=== PATIENT | female | born 1965 | race Caucasian/White ===

== ENCOUNTER 2018-07-13 13:40 | Observation (INO) | payer OTHER ==
[2018-07-13] MEDS ORDERED: SODIUM CHLORIDE 0.9% 1,000 ML IV STA (14:53)
[2018-07-13] MEDS ORDERED: ASPIRIN 81 MG PO STA (14:53)
--- NOTE | 2018-07-13 15:07 | ED ---
General Adult HPI - General Chief complaint: Skin/Abscess/Foreign Body Stated complaint: Abcess tooth, JENNIFER Time Seen by Provider: 07/13/18 14:40 Source: patient, RN notes reviewed, old records reviewed Mode of arrival: ambulatory Limitations: no limitations - History of Present Illness Initial comments: 52-year-old female patient past medical history of hypothyroidism, hyperlipidemia presents to ED for dental pain. Patient reports that she cracked offered to the approximately one week ago has been having pain in that region since. The patient take reveal the patient is also been expressing a substernal chest pressure since approximately 8 AM this morning. Patient denies any pain. Patient denies any significant shortness of breath. patient states that the pain does not radiate and has been waxing and waning, denies any association with exertion. Patient denies any prior cardiac issues. patient does state that her father had a myocardial infarction at age 50. patient states that there is no way that she could possibly be . Systemic: Pt denies fatigue, myalgia, fever/chills, rash. Pt denies weakness, night sweats, weight loss. Neuro: Pt denies headache, visual disturbances, syncope or pre-syncope. HEENT: Pt denies ocular discharge or irritation, otalgia, rhinorrhea, pharyngitis or notable lymphadenopathy. Cardiopulmonary: Pt denies SOB, heart palpitations, dyspnea on exertion. Abdominal/GI: Pt denies abdominal pain, n/v/d. : Pt denies dysuria, burning w/ urination, frequency/urgency. Denies new onset urinary or bowel incontinence. MSK: Pt denies myalgia, loss of strength or function in extremities. Neuro: Pt denies new onset weakness, paresthesias. - Related Data Home Medications Medication Instructions Recorded Confirmed FLUoxetine HCL [PROzac] 40 mg PO DAILY 07/13/18 07/13/18 Levothyroxine Sodium [Synthroid] 50 mcg PO DAILY 07/13/18 07/13/18 OXcarbazepine [Trileptal] 150 mg PO DAILY 07/13/18 07/13/18 Allergies Allergy/AdvReac Type Severity Reaction Status Date / Time amoxicillin Allergy Anaphylaxis Verified 07/13/18 16:16 metronidazole [From Flagyl] Allergy Rash/Hives Verified 07/13/18 16:16 Sulfa (Sulfonamide Allergy Rash/Hives Verified 07/13/18 16:16 Antibiotics) Review of Systems ROS Statement: Those systems with pertinent positive or pertinent negative responses have been documented in the HPI. ROS Other: All systems not noted in ROS Statement are negative. Past Medical History Past Medical History: Thyroid Disorder History of Any Multi-Drug Resistant Organisms: None Reported Past Surgical History: No Surgical Hx Reported Past Psychological History: Anxiety, Bipolar, Depression Smoking Status: Never smoker Past Alcohol Use History: None Reported Past Drug Use History: None Reported General Exam - General Exam Comments Initial Comments: Constitutional: NAD, AOX3, Pt has pleasant affect. HEENT: NC/AT, trachea midline, neck supple, no lymphadenopathy. Posterior pharynx non erythematous, without exudates. External ears appear normal, without discharge. Mucous membranes moist. Eyes PERRLA, EOM intact. There is no scleral icterus. No pallor noted. patient has mild tenderness to palpation at 12 tooth. Small area of erythema. No drainable abscess. Cardiopulmonary: RRR, no murmurs, rubs or gallops, no JVD noted. Lungs CTAB in anterior and posterior johnson. No peripheral edema. Abdominal exam: Abdomen soft and non-distended. Abdomen non-tender to palpation in all 4 quadrants. Bowel sounds active in LLQ. No hepatosplenomegaly. No ecchymosis Neuro: CN II-XII grossly intact. No nuchal rigidity. MSK: No posterior calf tenderness bilaterally, homans sign negative bilaterally. Posterior tibialis and radial pulse +2 bilaterally. Sensation intact in upper and lower extremities. Full active ROM in upper and lower extremities, 5/5 stregnth. Limitations: no limitations Course Vital Signs 07/13/18 13:46 Temperature 97.7 F Pulse Rate 78 Respiratory 20 Rate Blood Pressure 145/86 O2 Sat by Pulse 99 Oximetry Medical Decision Making - Medical Decision Making 52-year-old female patient past medical history of hypothyroidism, hyperlipidemia presents to ED for dental pain. Patient reports that she cracked offered to the approximately one week ago has been having pain in that region since. The patient take reveal the patient is also been expressing a substernal chest pressure since approximately 8 AM this morning. Patient denies any pain. Patient denies any significant shortness of breath. patient states that the pain does not radiate and has been waxing and waning, denies any association with ex ertion. Patient denies any prior cardiac issues. patient does state that her father had a myocardial infarction at age 50. Patient vital signs stable, afebrile. Physical exam displayed: patient has mild tenderness to palpation at 12 tooth. Small area of erythema. No drainable abscess. Heart regular rate and rhythm, lungs clear to auscultation bilaterally. Laboratory investigations revealed nonspecific CBC, CMP. Coagulation studies within normal limits. D- dimer mildly elevated. Troponin negative. BNP within normal limits. CTA negative for pulmonary embolism. EKG notconcerning for acute ischemia. Repeat exam patient states that she is not currently expressing pain however has had a few intermittent stabbing chest pain since initial evaluation. Patient admitted for serial troponins and cardiac evaluation. Patient placed on Augmentin for dental infection. Case discussed with Dr. Edgar. - Lab Data Result diagrams: 07/13/18 15:10 07/13/18 15:10 Lab Results 07/13/18 07/13/18 07/13/18 Range/Units 15:10 15:10 15:10 WBC 6.6 (3.8-10.6) k/uL RBC 5.26 (3.80-5.40) m/uL Hgb 15.0 (11.4-16.0) gm/dL Hct 47.4 H (34.0-46.0) % MCV 90.0 (80.0-100.0) fL MCH 28.5 (25.0-35.0) pg MCHC 31.6 (31.0-37.0) g/dL RDW 13.6 (11.5-15.5) % Plt Count 298 (150-450) k/uL Neutrophils % 67 % Lymphocytes % 19 % Monocytes % 7 % Eosinophils % 4 % Basophils % 1 % Neutrophils # 4.4 (1.3-7.7) k/uL Lymphocytes # 1.3 (1.0-4.8) k/uL Monocytes # 0.4 (0-1.0) k/uL Eosinophils # 0.3 (0-0.7) k/uL Basophils # 0.1 (0-0.2) k/uL PT 10.0 (9.0-12.0) sec INR 0.9 (<1.2) APTT 25.1 (22.0-30.0) sec D-Dimer 0.69 H (<0.60) mg/L FEU Sodium 139 (137-145) mmol/L Potassium 4.2 (3.5-5.1) mmol/L Chloride 104 (98-107) mmol/L Carbon Dioxide 28 (22-30) mmol/L Anion Gap 7 mmol/L BUN 9 (7-17) mg/dL Creatinine 0.72 (0.52-1.04) mg/dL Est GFR (CKD-EPI)AfAm >90 (>60 ml/min/1.73 sqM) Est GFR (CKD-EPI)NonAf >90 (>60 ml/min/1.73 sqM) Glucose 87 (74-99) mg/dL Calcium 9.8 (8.4-10.2) mg/dL Magnesium 1.8 (1.6-2.3) mg/dL Total Bilirubin 0.4 (0.2-1.3) mg/dL AST 24 (14-36) U/L ALT 21 (9-52) U/L Alkaline Phosphatase 94 (38-126) U/L Troponin I (0.000-0.034) ng/mL NT-Pro-B Natriuret Pep pg/mL Total Protein 7.6 (6.3-8.2) g/dL Albumin 4.6 (3.5-5.0) g/dL 07/13/18 07/13/18 Range/Units 15:10 15:10 WBC (3.8-10.6) k/uL RBC (3.80-5.40) m/uL Hgb (11.4-16.0) gm/dL Hct (34.0-46.0) % MCV (80.0-100.0) fL MCH (25.0-35.0) pg MCHC (31.0-37.0) g/dL RDW (11.5-15.5) % Plt Count (150-450) k/uL Neutrophils % % Lymphocytes % % Monocytes % % Eosinophils % % Basophils % % Neutrophils # (1.3-7.7) k/uL Lymphocytes # (1.0-4.8) k/uL Monocytes # (0-1.0) k/uL Eosinophils # (0-0.7) k/uL Basophils # (0-0.2) k/uL PT (9.0-12.0) sec INR (<1.2) APTT (22.0-30.0) sec D-Dimer (<0.60) mg/L FEU Sodium (137-145) mmol/L Potassium (3.5-5.1) mmol/L Chloride (98-107) mmol/L Carbon Dioxide (22-30) mmol/L Anion Gap mmol/L BUN (7-17) mg/dL Creatinine (0.52-1.04) mg/dL Est GFR (CKD-EPI)AfAm (>60 ml/min/1.73 sqM) Est GFR (CKD-EPI)NonAf (>60 ml/min/1.73 sqM) Glucose (74-99) mg/dL Calcium (8.4-10.2) mg/dL Magnesium (1.6-2.3) mg/dL Total Bilirubin (0.2-1.3) mg/dL AST (14-36) U/L ALT (9-52) U/L Alkaline Phosphatase (38-126) U/L Troponin I <0.012 (0.000-0.034) ng/mL NT-Pro-B Natriuret Pep 23 pg/mL Total Protein (6.3-8.2) g/dL Albumin (3.5-5.0) g/dL - EKG Data -: EKG Interpreted by Me (and dr edgar) EKG Comments: ventricular rate 72, DC interval 144, QRS 76, QT/QTC 414/43. Normal sinus rhythm, normal EKG. No concern for acute ischemia. Disposition Clinical Impression: Chest pain, Dental infection Disposition: ADMITTED IP TO THIS HOSP Condition: Serious Is patient prescribed a controlled substance at d/c from ED?: No Referrals: None,Stated [Primary Care Provider] - 1-2 days
[2018-07-13 15:28] LABS: Basophils # (A) 0.1 k/uL (0-0.2); Basophils % (A) 1 %; Eosinophils # (A) 0.3 k/uL (0-0.7); Eosinophils % (A) 4 %; HCT 47.4 % (34.0-46.0); Lymphocytes # (A) 1.3 k/uL (1.0-4.8); Lymphocytes % (A) 19 %; MCH 28.5 pg (25.0-35.0); MCHC 31.6 g/dL (31.0-37.0); Mean Platelet Volume 7.6; Monocytes # (A) 0.4 k/uL (0-1.0); Monocytes % (A) 7 %; Neutrophils # (A) 4.4 k/uL (1.3-7.7); Neutrophils % (A) 67 %; Platelet Count 298 k/uL (150-450); RBC 5.26 m/uL (3.80-5.40); RDW 13.6 % (11.5-15.5); WBC 6.6 k/uL (3.8-10.6)
--- NOTE | 2018-07-13 15:35 | XR ---
EXAMINATION TYPE: XR chest 2V DATE OF EXAM: 07/13/2018 COMPARISON: Prior chest x-ray dated 05/28/2010 HISTORY: chest pain TECHNIQUE: Frontal and lateral views of the chest are obtained. FINDINGS: There is no focal air space opacity, pleural effusion, or pneumothorax seen. The cardiac silhouette size is within normal limits. The osseous structures are intact. IMPRESSION: No acute cardiopulmonary process.
[2018-07-13 15:40] LABS: ALT 21 U/L (9-52); AST 24 U/L (14-36); Albumin 4.6 g/dL (3.5-5.0); Alkaline Phosphatase 94 U/L (38-126); Anion Gap 7 mmol/L; Blood Urea Nitrogen 9 mg/dL (7-17); Calcium 9.8 mg/dL (8.4-10.2); Carbon Dioxide 28 mmol/L (22-30); Chloride 104 mmol/L (98-107); Glucose 87 mg/dL (74-99); Magnesium 1.8 mg/dL (1.6-2.3); Potassium 4.2 mmol/L (3.5-5.1); Sodium 139 mmol/L (137-145); Total Bilirubin 0.4 mg/dL (0.2-1.3); Total Protein 7.6 g/dL (6.3-8.2)
[2018-07-13 15:48] LABS: INR 0.9 (<1.2); Partial Thromboplastin Time 25.1 sec (22.0-30.0)
[2018-07-13 15:54] LABS: D-Dimer 0.69 mg/L FEU (<0.60)
--- NOTE | 2018-07-13 17:04 | CT ---
EXAMINATION TYPE: CT angio chest DATE OF EXAM: 07/13/2018 4:53 PM COMPARISON: None HISTORY: Chest pressure and shortness of breath CT DLP: 324.3 mGycm Automated exposure control for dose reduction was used. CONTRAST: CTA scan of the thorax is performed with IV Contrast, patient injected with 100 mL of Isovue 300, pul monary embolism protocol. There are 3-D post processed images.. FINDINGS: Heart and mediastinum appear normal. Thoracic aorta shows no aneurysm or dissection. There are no hil ar masses. Ascending aorta measures 3.7 cm. There is no pericardial effusion. There is normal contrast opacification of the pulmonary arteries. There are no filling defects. Upper abdominal soft tissues are unremarkable. Lungs are clear of infiltrate. There is no pleural effusion. There is no pericardial effusion. The roberto [place] thorax appears intact. IMPRESSION: NORMAL EXAM. NO EVIDENCE OF PULMONARY EMBOLISM.
[2018-07-13] MEDS ORDERED: NITROGLYCERIN SL TABS 0.4 MG TAB SUBLINGUAL PRN (17:51)
--- NOTE | 2018-07-13 20:46 | P.HPIM ---
History of Present Illness H&P Date: 07/13/18 Chief Complaint: Dental pain and chest pain 52-year-old female with history of hypothyroidism. Patient reports that she drove yesterday from [place] to [place] on where her f ather and daughter lives. She arrived late that night spend the night at her father's place woke up in the morning at 8 and she was feeling fine she drove to public park and wanted to get more sleep as she was not comfortable at her father's house. She slept in the car at a public park until 1 PM when she woke up she felt very field marketing specialist the car with pressure on her central chest and heavy breathing. Slight associated dizziness but denies any sweating or palpitations nausea or vomiting. She reports just feeling heavy in the retrosternal area as if an elephant sitting on her chest nonradiating pain rated the pain as 5 out of 10 in severity. Despite that she drove to her father's house with no problems but she had in mind that this could be sepsis symptoms due to dental infection. She reports that she cracked her tooth over a week ago and since then she's been concerned about her gums as she felt some swelling and she had an appointment with her dentist tomorrow morning. Patient googled some information and was concerned regarding sepsis and decided to come to the hospital At this time she reports that she still feeling some chest pressure rated as 5 out of 10 in severity and nonradiating breathing comfortably. She denies any history of coronary artery disease. She reports that she is able to do house chores and climb a flight of stairs with no limitations. But she hasn't tried any of those since she started having the chest discomfort. In the ED CTA of the chest showed no acute abnormalities. Her initial troponins were negative EKG showed normal sinus rhythm, vital signs are within normal limits. Patient is afebrile. No leukocytosis. Patient was evident and nitro paste despite that she was still reporting some chest discomfort. She was admitted under observation to rule out ACS Review of Systems Pertinent positives as noted in HPI. All other systems were reviewed and are negative Past Medical History Past Medical History: Thyroid Disorder History of Any Multi-Drug Resistant Organisms: None Reported Past Surgical History: No Surgical Hx Reported Past Psychological History: Anxiety, Bipolar, Depression Smoking Status: Never smoker Past Alcohol Use History: None Reported Past Drug Use History: None Reported - Past Family History Family Additional Family Medical History / Comment(s): Father with history of CA at age of 50 Medications and Allergies Home Medications Medication Instructions Recorded Confirmed Type FLUoxetine HCL [PROzac] 40 mg PO DAILY 07/13/18 07/13/18 History Levothyroxine Sodium [Synthroid] 50 mcg PO DAILY 07/13/18 07/13/18 History OXcarbazepine [Trileptal] 150 mg PO DAILY 07/13/18 07/13/18 History Allergies Allergy/AdvReac Type Severity Reaction Status Date / Time amoxicillin Allergy Anaphylaxis Verified 07/13/18 16:16 metronidazole [From Flagyl] Allergy Rash/Hives Verified 07/13/18 16:16 Sulfa (Sulfonamide Allergy Rash/Hives Verified 07/13/18 16:16 Antibiotics) Physical Exam Vitals: Vital Signs Temp Pulse Resp BP Pulse Ox 07/13/18 13:46 97.7 F 78 20 145/86 99 Intake and Output 07/13/18 07/13/18 07/13/18 06:59 14:59 22:59 Other: Weight 81.647 kg Constitutional: No acute distress, conversant, pleasant Eyes: Anicteric sclerae, moist conjunctiva, no lid-lag Pupils equal round reactive to light ENMT: NC/AT Oropharynx clear, no erythema, or exudates There is slight bump over the inner gum of the right upper first molar, with 3L no erythema slight tenderness to palpation suspicious for underlying abscess no drainage Neck: Supple, FROM, no masses, or JVD No carotid bruits No thyromegaly Lungs: Clear to auscultation Clear to percussion Normal respiratory effort, no accessory muscle use Cardiovascular: Heart regular in rate and rhythm, No murmurs, gallops, or rubs No peripheral edema Abdominal: Soft Nontender, no guarding, rebound or rigidity Abdomen moving with respiration Normoactive bowel sounds No hepatomegaly, No splenomegaly No palpable mass No abdominal wall hernia noted Skin: Normal temperature, tone, texture, turgor No induration No subcutaneous nodules No rash, lesions No ulcers Extremities: No digital cyanosis No clubbing Pedal pulses intact and symmetrical Radial pulses intact and symmetrical No calf tenderness Psychiatric: Alert and oriented to person, place and time Appropriate affect fair judgment Neuro Muscles Strength 5/5 in all 4 extremities Sensation to light touch grossly present throughout Cranial nerves II-XII grossly intact No focal sensory deficits Lymphatics: no palpable cervical or supraclavicular , or inguinal lymph nodes Results CBC & Chem 7: 07/13/18 15:10 07/13/18 15:10 Labs: Abnormal Lab Results - Last 24 Hours (Table) 07/13/18 07/13/18 Range/Units 15:10 15:10 Hct 47.4 H (34.0-46.0) % D-Dimer 0.69 H (<0.60) mg/L FEU Assessment and Plan Assessment: 52-year-old female with history of hypothyroid and hyperlipidemia admitted under observation with anticipated length of stay less than 48 hours for atypical chest pain rule out ACS. Plan: Atypical chest pain rule out ACS Continue with aspirin Monitor vital signs Trend troponins Cardiac monitoring Cardiology consult Check lipid panel EKG showed normal sinus rhythm Initial troponins are negative CT angios the chest negative for any acute abnormalities Dental pain with possible abscess Continue with clindamycin, patient is ALLERGIC to amoxicillin Patient encouraged to see a dentist as an outpatient upon discharge History of hypothyroidism Continue levothyroxin DVT prophylaxis of subcu 3 times a day Surrogate decision-maker: Patient's father CODE STATUS: Full code Discussed with: Patient, ER Anticipated discharge: <[address]: Home A total of 55 minutes was spent on the care of this complex patient more than 50% of the time was spent in counseling and care coordination.
[2018-07-13 22:08] VITALS: BMI 28.1
[2018-07-13] MEDS: CLINDAMYCIN 600 MG in DEXTROSE 5% IN WATER 50 ML IVPB SCH ×2 (22:09)
[2018-07-14] MEDS: CLINDAMYCIN 600 MG in DEXTROSE 5% IN WATER 50 ML IVPB SCH ×4 (05:00→08:28)
[2018-07-14] MEDS ORDERED: LEVOTHYROXINE 50 MCG TAB PO SCH (06:30)
[2018-07-14 07:51] VITALS: RESP 18
[2018-07-14] MEDS ORDERED: ASPIRIN 325 MG TAB PO SCH (09:00)
[2018-07-14] MEDS ORDERED: FLUoxetine HCL 20 MG CAP PO SCH (09:00)
[2018-07-14] MEDS ORDERED: OXcarbazepine 150 MG TAB PO SCH (09:00)
--- NOTE | 2018-07-14 11:02 | P.CRDCN ---
History of Present Illness History of present illness: This is a pleasant 52-year-old female past medical history significant for hypothyroidism, anxiety, depression and bipolar disease. She denies history of hypertension, dyslipidemia, coronary artery disease and does not follow with a glycerin operator for any reason. Her father suffered a myocardial infarction at the age of 50. We have been asked to see her in consultation secondary to chest discomfort. She states for approximately 1 week she's been having pain in her tooth. She states while eating she bit down on something and she cracked her tooth. Since that time she has been having a lot of pressure in the jaw. Yesterday when she woke up in the morning she started feeling of pressure in the midsternal region that radiated up into the neck and the jaw. Symptoms were intermittent and not associated with any specific aggravating factor. There was no radiation of the pain to the arm or back. Upon arrival to the emergency department she was started on antibiotics and states her pain has subsided. She is seen and examined resting comfortably in bed in no acute distress. She has had no further symptoms of pressure in the chest. EKG reveals sinus mechanism with no acute ST or T wave abnormalities noted. Chest x-ray is negative for an acute cardiopulmonary process. CTA chest was negative for pulmonary embolism with no evidence of aortic aneurysm or dissection. Laboratory data reviewed, WBC 6.6, hemoglobin 15, platelets 298, d-dimer 0.69, sodium 139, potassium 4.2, creatinine 0.72, magnesium 1.8, cardiac enzymes negative 3, NT proBNP 23. She takes no cardiac medications. At the time of my exam: CONSTITUTIONAL: Denies fever. Denies chills. EYES: Denies blurred vision. Denies vision changes. Denies eye pain. EARS, NOSE, MOUTH & THROAT: Denies headache. Denies sore throat. Denies ear pain. CARDIOVASCULAR: Denies chest pain. Denies shortness of breath. Denies orthopnea. Denies PND. Denies palpitations. RESPIRATORY: Denies cough. GASTROINTESTINAL: Denies abdominal pain. Denies diarrhea. Denies constipation. Denies nausea. Denies vomiting. MUSCULOSKELETAL: Denies myalgias. INTEGUMENTARY: Denies pruitis. Denies rash. NEUROLOGIC: Denies numbness. Denies tingling. Denies weakness. PSYCHIATRIC: Denies anxiety. Denies depression. ENDOCRINE: Denies fatigue. Denies weight change. Denies polydipsia. Denies polyurina. GENITOURINARY: Denies burning, hematuria or urgency with micturation. HEMATOLOGIC: Denies history of anemia. Denies bleeding. Blood pressure 109/70 heart rate 61 afebrile maintaining oxygen saturation on room air GENERAL: This is a 52-year-old female in no apparent distress at the time of my examination. HEENT: Head is atraumatic, normocephalic. Pupils are equal, round. Sclerae anicteric. Conjunctivae are clear. Mucous membranes of the mouth are moist. Neck is supple. There is no jugular venous distention. No carotid bruit is heard. LUNGS: Clear to auscultation no wheezes, rales or rhonchi. No chest wall tenderness is noted on palpation or with deep breathing. HEART: Regular rate and rhythm without murmurs, rubs or gallops. S1 and S2 heard. ABDOMEN: Soft, nontender. Bowel sounds are heard. No organomegaly noted. EXTREMITIES: No evidence of peripheral edema and no calf tenderness noted. VASCULAR: Radial and dorsalis pedis pulses palpated, no evidence of clubbing. NEUROLOGIC: Patient is awake, alert and oriented x3. ASSESSMENT Chest pain, atypical for angina. Dental pain Hypothyroidism PLAN An acute coronary event has been ruled out. Check lipid profile. Echocardiogram has been obtained and will be reviewed. Symptoms are atypical for angina however due to her family history we have recommended she undergo stress test. This can be done as an outpatient. Thank you kindly for this consultation. Nurse Practitioner note has been reviewed, I agree with a documented findings and plan of care. Patient was seen and examined. Past Medical History Past Medical History: Thyroid Disorder History of Any Multi-Drug Resistant Organisms: None Reported Past Surgical History: No Surgical Hx Reported Additional Past Surgical History / Comment(s): HVP, broken nose Past Anesthesia/Blood Transfusion Reactions: No Reported Reaction Smoking Status: Never smoker - Past Family History Family Additional Family Medical History / Comment(s): Father with history of NH at age of 50 Medications and Allergies Home Medications Medication Instructions Recorded Confirmed Type FLUoxetine HCL [PROzac] 40 mg PO DAILY 07/13/18 07/13/18 History Levothyroxine Sodium [Synthroid] 50 mcg PO DAILY 05/14/19 05/14/19 History OXcarbazepine [Trileptal] 100 mg PO DAILY 07/13/18 07/13/18 History Allergies Allergy/AdvReac Type Severity Reaction Status Date / Time amoxicillin Allergy Anaphylaxis Verified 07/13/18 21:57 metronidazole [From Flagyl] Allergy Rash/Hives Verified 07/13/18 21:57 Sulfa (Sulfonamide Allergy Rash/Hives Verified 07/13/18 21:57 Antibiotics) Physical Exam Vitals: Vital Signs Temp Pulse Pulse Resp BP BP Pulse Ox 07/14/18 07:10 97.9 F 61 18 109/70 96 07/14/18 04:00 98.3 F 62 16 111/68 98 07/13/18 22:18 97.9 F 70 16 130/75 97 07/13/18 21:30 64 20 97/52 07/13/18 21:00 64 21 123/69 07/13/18 20:30 74 20 113/80 07/13/18 20:00 90 12 121/84 07/13/18 19:30 72 24 110/72 07/13/18 19:00 64 21 113/75 07/13/18 18:30 65 15 118/75 07/13/18 18:01 67 18 130/75 07/13/18 17:30 67 18 115/69 07/13/18 17:00 64 22 119/94 07/13/18 16:30 61 16 133/90 98 07/13/18 16:03 69 10 L 97 07/13/18 13:46 97.7 F 78 20 145/86 99 Results 07/13/18 15:10 07/13/18 15:10 Cardiac Enzymes 07/13/18 07/13/18 07/13/18 Range/Units 15:10 15:10 20:30 AST 24 (14-36) U/L Troponin I <0.012 <0.012 (0.000-0.034) ng/mL 07/14/18 Range/Units 03:35 AST (14-36) U/L Troponin I <0.012 (0.000-0.034) ng/mL Coagulation 07/13/18 Range/Units 15:10 PT 10.0 (9.0-12.0) sec APTT 25.1 (22.0-30.0) sec CBC 05/14/19 Range/Units 15:10 WBC 6.6 (3.8-10.6) k/uL RBC 5.26 (3.80-5.40) m/uL Hgb 15.0 (11.4-16.0) gm/dL Hct 47.4 H (34.0-46.0) % Plt Count 298 (150-450) k/uL Comprehensive Metabolic Panel 07/13/18 Range/Units 15:10 Sodium 139 (137-145) mmol/L Potassium 4.2 (3.5-5.1) mmol/L Chloride 104 (98-107) mmol/L Carbon Dioxide 28 (22-30) mmol/L BUN 9 (7-17) mg/dL Creatinine 0.72 (0.52-1.04) mg/dL Glucose 87 (74-99) mg/dL Calcium 9.8 (8.4-10.2) mg/dL AST 24 (14-36) U/L ALT 21 (9-52) U/L Alkaline Phosphatase 94 (38-126) U/L Total Protein 7.6 (6.3-8.2) g/dL Albumin 4.6 (3.5-5.0) g/dL Current Medications Generic Name Dose Route Start Last Admin Trade Name Freq PRN Reason Stop Dose Admin Aspirin 325 mg 07/14/18 09:00 07/14/18 08:28 Aspirin PO 325 mg DAILY YOSEF Administration Fluoxetine HCl 40 mg 07/14/18 09:00 Prozac PO DAILY [facility] Clindamycin Phosphate 600 mg/ 54 mls @ 50 mls/hr 07/13/18 18:00 07/14/18 08:28 Dextrose/Water IVPB 50 mls/hr Q8HR YOSEF Administration Levothyroxine Sodium 50 mcg 07/14/18 06:30 07/14/18 05:45 Synthroid PO 50 mcg 0630 YOSEF Administration Nitroglycerin 0.4 mg 07/13/18 17:51 Nitrostat SUBLINGUAL Q5M PRN Chest Pain Oxcarbazepine 150 mg 07/14/18 09:00 Trileptal PO DAILY YOSEF 07/13/18 15:10 07/13/18 15:10
[2018-07-14 12:07] LABS: Cholesterol 199 mg/dL (<200); HDL Cholesterol 48 mg/dL (40-60); LDL Cholesterol,Calculated 126 mg/dL (0-99); Triglycerides 126 mg/dL (<150)
[2018-07-14 12:11] VITALS: BP 119/75; PULSE 65; TEMP 97.7
--- NOTE | 2018-07-14 12:27 | ECHOF ---
Referral Reason:chest pain MEASUREMENTS -------- HEIGHT: 170.2 cm WEIGHT: 81.6 kg BP: 111/68 RVIDd: 2.9 cm (< 3.3) IVSd: 0.7 cm (0.6 - 1.1) LVIDd: 4.3 cm (3.9 - 5.3) LVPWd: 0.9 cm (0.6 - 1.1) IVSs: 1.0 cm LVIDs: 3.1 cm LVPWs: 1.4 cm LA Diam: 3.2 cm (2.7 - 3.8) LAESV Index (A-L): 16.32 ml/m Ao Diam: 3.2 cm (2.0 - 3.7) AV Cusp: 1.9 cm (1.5 - 2.6) EPSS: 0.7 cm MV E Jaquan: 0.67 m/s MV DecT: 332 ms MV A Jaquan: 0.63 m/s MV E/A Ratio: 1.07 AR PHT: 1146 ms RAP: 5.00 mmHg RVSP: 27.22 mmHg MV EF SLOPE: 49.90 mm/s (70 - 150) MV EXCURSION: 1.41 cm (> 18.000) FINDINGS -------- Sinus rhythm. This was a technically adequate study. The left ventricular size is normal. Left ventricular wall thickness is normal. Overall left vent ricular systolic function is normal with, an EF between 60 - 65 %. The right ventricle is normal in size. Normal LA size by volume 22+/-6 ml/m2. The right atrium is normal in size. Aneurysmal Interatrial septum. Aortic valve is trileaflet and is mildly thickened. There is mild aortic regurgitation. The mitral valve leaflets are mildly thickened. Mild mitral annular calcification present. There is trace mitral regurgitation. Mild tricuspid regurgitation present. Right ventricular systolic pressure is normal at < 35 mmHg. Trace/mild (physiologic) pulmonic regurgitation. The aortic root size is normal. Normal inferior vena cava with normal inspiratory collapse consistent with estimated right atrial pre ssure of 5 mmHg. The pericardium is normal. CONCLUSIONS -------- 1. Sinus rhythm. 2. This was a technically adequate study. 3. The left ventricular size is normal. 4. Left ventricular wall thickness is normal. 5. Overall left ventricular systolic function is normal with, an EF between 60 - 65 %. 6. The right ventricle is normal in size. 7. Normal LA size by volume 22+/-6 ml/m2. 8. The right atrium is normal in size. 9. Aneurysmal Interatrial septum. 10. Aortic valve is trileaflet and is mildly thickened. 11. There is mild aortic regurgitation. 12. The mitral valve leaflets are mildly thickened. 13. Mild mitral annular calcification present. 14. There is trace mitral regurgitation. 15. Mild tricuspid regurgitation present. 16. Right ventricular systolic pressure is normal at < 35 mmHg. 17. Trace/mild (physiologic) pulmonic regurgitation. 18. The aortic root size is normal. 19. Normal inferior vena cava with normal inspiratory collapse consistent with estimated right atrial pressure of 5 mmHg. 20. The pericardium is normal. COMPRESSOR HOUSE OPERATOR: LENKA Griffin
--- NOTE | 2018-07-14 13:18 | P.DS ---
Providers Date of admission: 07/13/18 17:32 Expected date of discharge: 07/14/18 Attending physician: Rosita Hooper, DO Consults: 07/13/18 17:51 Consult Physician Urgent Consulting Provider: Trisha Goodman Consult Reason/Comments: chest pain Do you want consulting provider notified?: Yes Primary care physician: Stated None Hospital Course: 52-year-old female with history of hypothyroidism. Patient reports that she drove yesterday from [place] to [place] on where her father and daughter lives. She arrived late that night spend the night at her father's place woke up in the morning at 8 and she was feeling fine she drove to public park and wanted to get more sleep as she was not comfortable at her father's house. She slept in the car at a public park until 1 PM when she woke up she felt very paving block cutter the car with pressure on her central chest and heavy breathing. Slight associated dizziness but denies any sweating or palpitations nausea or vomiting. She reports just feeling heavy in the retrosternal area as if an elephant sitting on her chest nonradiating pain rated the pain as 5 out of 10 in severity. Despite that she drove to her father's house with no problems but she had in mind that this could be sepsis symptoms due to dental infection. She reports that she cracked her tooth over a week ago and since then she's been concerned about her gums as she felt some swelling and she had an appointment with her dentist tomorrow morning. Patient googled some information and was concerned regarding sepsis and decided to come to the hospital At this time she reports that she still feeling some chest pressure rated as 5 out of 10 in severity and nonradiating breathing comfortably. She denies any history of coronary artery disease. She reports that she is able to do house chores and climb a flight of stairs with no limitations. But she hasn't tried any of those since she started having the chest discomfort. In the ED CTA of the chest showed no acute abnormalities. Her initial troponins were negative EKG showed normal sinus rhythm, vital signs are within normal limits. Patient is afebrile. No leukocytosis. Patient was evident and nitro paste despite that she was still reporting some chest discomfort. She was admitted under observation to rule out ACS. Troponin was less than 0.0123, with EKG showing normal sinus rhythm, ACS was ruled out. Cardiology evaluated the patient and recommended stress test. Patient stated that she did not want to undergo stress testing here, amendable to do in the outpatient setting. Patient was seen and examined prior to discharge. No acute events overnight. Patient reports resolution of her chest pain. She denies any chest pain, shortness of breath or palpitations. Continues to complain of dental pain. Has dentist appointment tomorrow. General: [non toxic], [no distress], [appears at stated age] Derm: [warm], [dry] Head: [atraumatic], [normocephalic], [symmetric] Eyes: [EOMI], [no lid lag], [anicteric sclera] Mouth: [no lip lesion], [mucus membranes moist] Cardiovascular: [S1S2 reg], [no murmur], [positive posterior tibial pulse bilateral], Lungs: [CTA bilateral], [no rhonchi, no rales] , [no accessory muscle use] Abdominal: [soft], [ nontender to palpation], [no guarding], [no appreciable organomegaly] Ext: [no gross muscle atrophy], [no edema], [no contractures] Neuro: [no focal neuro deficits] Psych: [Alert], [oriented], [appropriate affect] Assessment and Plan Chest pain Hypothyroidism Anxiety/depression/bipolar disorder Hyperlipidemia Elevated d-dimer Dental pain ACS has been ruled out. Cardiology consulted, recommends inpatient stress test. Patient would like to do stress testing in the outpatient setting due to insurance issues. Stable. Continue levothyroxine at home dose. Stable. Continue Prozac and Trileptal. Lipid panel shows LDL 126. Heart healthy diet. Low-dose Lipitor on discharge. Elevated d-dimer but CTA ruled out PE. DC home on clindamycin by mouth. Recommend dentist. Pertinent Studies: chest CTA, chest x-ray, echocardiogram Patient Condition at Discharge: Serious Plan - Discharge Summary New Discharge Prescriptions: New Rosuvastatin Calcium [Crestor] 20 mg PO DAILY #90 tab Aspirin 81 mg PO DAILY #90 chewable Clindamycin [Cleocin] 150 mg PO Q6H #28 capsule OXcarbazepine [Trileptal] 150 mg PO DAILY tab Continue Levothyroxine Sodium [Synthroid] 50 mcg PO DAILY FLUoxetine HCL [PROzac] 40 mg PO DAILY OXcarbazepine [Trileptal] 100 mg PO DAILY Discharge Medication List FLUoxetine HCL [PROzac] 40 mg PO DAILY 07/13/18 [History] Levothyroxine Sodium [Synthroid] 50 mcg PO DAILY 07/13/18 [History] OXcarbazepine [Trileptal] 100 mg PO DAILY 07/13/18 [History] Aspirin 81 mg PO DAILY #90 chewable 07/14/18 [Rx] Clindamycin [Cleocin] 150 mg PO Q6H #28 capsule 07/14/18 [Rx] OXcarbazepine [Trileptal] 150 mg PO DAILY tab 07/14/18 [Rx] Rosuvastatin Calcium [Crestor] 20 mg PO DAILY #90 tab 07/14/18 [Rx] Follow up Appointment(s)/Referral(s): None,Stated [Primary Care Provider] - 1-2 days Feliciano Damon MD [STAFF PHYSICIAN] - 2 Weeks Activity/Diet/Wound Care/Special Instructions: Diet: Heart healthy Follow-up with PCP within 2-3 days of discharge. Follow-up with cardiology within 1 week of discharge. Please obtain stress test with the appointment given to you.
== END 2018-07-14 15:16 | disposition home or self-care (01) ==
LOC: EC 13:40 → 1SOBS 17:32
PROVIDERS: ADMIT Internal Medicine; ATTEND Internal Medicine
DX: R07.89 Other chest pain (principal); K04.7 Periapical abscess without sinus; E03.9 Hypothyroidism, unspecified; F41.9 Anxiety disorder, unspecified; F31.9 Bipolar disorder, unspecified; R79.1 Abnormal coagulation profile; E78.5 Hyperlipidemia, unspecified; Z79.890 Hormone replacement therapy; Z79.899 Other long term (current) drug therapy; Z88.0 Allergy status to penicillin; Z82.49 Family history of ischemic heart disease and other diseases of the circulatory system
CPT/HCPCS: 96365; 96366; 99285; 36415; 93005; 93306; 85379; 83880; 80061; 80053; 83735; 84484 ×2; 85025; 85610; 85730; 71046; 71275; G0378 ×2; Q9967

== ENCOUNTER 2020-03-28 14:02 | Emergency (ER) | payer OTHER ==
[2020-03-28 14:12] VITALS: BP 140/87; PULSE 84; RESP 22; TEMP 98.4
--- NOTE | 2020-03-28 14:56 | XR ---
EXAMINATION TYPE: XR chest 2V DATE OF EXAM: 03/28/2020 COMPARISON: Chest x-ray June 2018 HISTORY: Cough congestion shortness of breath. TECHNIQUE: Frontal and lateral views of the chest are obtained. FINDINGS: There is no focal air space opacity, pleural effusion, or pneumothorax seen. The cardiac silhouette size is within normal limits. The osseous structures are intact. IMPRESSION: No acute cardiopulmonary process. No significant change from prior.
--- NOTE | 2020-03-28 15:01 | ED ---
General Adult HPI - General Chief complaint: Upper Respiratory Infection Stated complaint: Congestion,cough Time Seen by Provider: 03/28/20 14:05 Source: patient, RN notes reviewed Mode of arrival: ambulatory Limitations: no limitations - History of Present Illness Initial comments: This a 54-year-old female presents emergency Department chief complaint cough congestion last 4-5 days. Patient states is getting worse. Patient complains of right ear pain. Patient states she has nasal congestion, chest congestion with productive cough. Patient's had 4 prior Covid testing which have been negative. Patient states that she's been on nose no sick contacts. Patient denies any chest pain no severe shortness breath no nausea vomiting. - Related Data Home Medications Medication Instructions Recorded Confirmed FLUoxetine HCL [PROzac] 40 mg PO DAILY@1500 07/13/18 03/28/20 Levothyroxine Sodium [Synthroid] 50 mcg PO DAILY@1500 07/13/18 03/28/20 Magnesium(Unknown) 1 tab PO DAILY 03/28/20 03/28/20 Multivitamins, Thera [Multivitamin 1 tab PO DAILY 03/28/20 03/28/20 (formulary)] Vitamin D3(Unknown) 1 tab PO DAILY 03/28/20 03/28/20 guaiFENesin [Mucinex] 600 mg PO BID 03/28/20 03/28/20 Previous Rx's Medication Instructions Recorded Azithromycin [Zithromax Z-pack (6 0 mg PO DIRECTED #1 pack 03/28/20 tabs)] Allergies Allergy/AdvReac Type Severity Reaction Status Date / Time amoxicillin Allergy Anaphylaxis Verified 03/28/20 14:28 metronidazole [From Flagyl] Allergy Rash/Hives Verified 03/28/20 14:28 Sulfa (Sulfonamide Allergy Rash/Hives Verified 03/28/20 14:28 Antibiotics) Review of Systems ROS Statement: Those systems with pertinent positive or pertinent negative responses have been documented in the HPI. ROS Other: All systems not noted in ROS Statement are negative. Past Medical History Past Medical History: Hyperlipidemia, Seizure Disorder, Thyroid Disorder History of Any Multi-Drug Resistant Organisms: None Reported Past Surgical History: No Surgical Hx Reported Additional Past Surgical History / Comment(s): HVP, broken nose Past Anesthesia/Blood Transfusion Reactions: No Reported Reaction Past Psychological History: Anxiety, Bipolar, Depression Smoking Status: Never smoker Past Alcohol Use History: None Reported Past Drug Use History: None Reported - Past Family History Family Additional Family Medical History / Comment(s): Father with history of [place] at age of 50 General Exam Limitations: no limitations General appearance: alert, in no apparent distress Head exam: Present: atraumatic, normocephalic, normal inspection Eye exam: Present: normal appearance, PERRL, EOMI. Absent: scleral icterus, conjunctival injection, periorbital swelling ENT exam: Present: normal oropharynx, mucous membranes moist, normal external ear exam. Absent: normal exam, TM's normal bilaterally (Erythema noted of the right TM, mild fluid noted) Neck exam: Present: normal inspection, full ROM. Absent: tenderness, meningismus, lymphadenopathy Respiratory exam: Present: normal lung sounds bilaterally. Absent: respiratory distress, wheezes, rales, rhonchi, stridor Cardiovascular Exam: Present: regular rate, normal rhythm, normal heart sounds. Absent: systolic murmur, diastolic murmur, rubs, gallop, clicks Course Vital Signs 03/28/20 14:09 Temperature 98.4 F Pulse Rate 84 Respiratory 22 Rate Blood Pressure 140/87 O2 Sat by Pulse 99 Oximetry Medical Decision Making - Medical Decision Making Patient's chest x-ray is unremarkable. Patient does have a right otitis media. Patient was given antibiotics will follow-up PCP return parameters were discussed. Disposition Clinical Impression: Otitis media, Upper respiratory tract infection Disposition: HOME SELF-CARE Condition: Stable Instructions (If sedation given, give patient instructions): Upper Respiratory Infection (ED) Additional Instructions: Please return to the Emergency Department if symptoms worsen or any other concerns. Prescriptions: Azithromycin [Zithromax Z-pack (6 tabs)] 0 mg PO DIRECTED #1 pack Is patient prescribed a controlled substance at d/c from ED?: No Referrals: Namita Lama MD [Primary Care Provider] - 1-2 days Time of Disposition: 15:01
== END 2020-03-28 15:05 | disposition home or self-care (01) ==
LOC: EC 14:02
DX: J06.9 Acute upper respiratory infection, unspecified (principal); H66.91 Otitis media, unspecified, right ear; F41.9 Anxiety disorder, unspecified; F31.9 Bipolar disorder, unspecified; E07.9 Disorder of thyroid, unspecified; Z79.890 Hormone replacement therapy; Z79.899 Other long term (current) drug therapy; Z88.0 Allergy status to penicillin; Z88.1 Allergy status to other antibiotic agents; Z88.2 Allergy status to sulfonamides
CPT/HCPCS: 71046; 99283

== ENCOUNTER 2020-11-09 19:32 | Emergency (ER) | payer SELFPAY ==
[2020-11-09] MEDS ORDERED: DICYCLOMINE 10 MG/ML 2 ML AMP IM STA (20:51)
[2020-11-09] MEDS ORDERED: SODIUM CHLORIDE 0.9% 1,000 ML IV STA (20:51)
--- NOTE | 2020-11-09 20:57 | ED ---
Abdominal Pain HPI - General Chief Complaint: Abdominal Pain Stated Complaint: ABD Pain,Vomiting Time Seen by Provider: 11/09/20 20:19 Source: patient, family (Daughters), RN notes reviewed, old records reviewed Mode of arrival: wheelchair Limitations: no limitations - History of Present Illness Initial Comments: 55-year-old female patient presents to the emergency room ambulatory with complaints of nausea vomiting and diarrhea over the past 2 weeks. Patient states that its been chronic for her however for the past 2 weeks since been worse. She states that she believes it may be partly anxiety but also a poor diet. She states that today she had urdu onion soup and bread and then shortly after had the abdominal cramping and she has had persistent diarrhea since. She states that it is brown in color and very watery. In the past she said the diarrhea is so severe that she has been incontinent. She denies any blood in his stool. Describes the pain as crampy and usually after she eats. She states that her upper right quadrant and relieved after bowel movement. She denies any fevers. She is hypothyroid and depression. No other medical problems. There is a family history of gallbladder disease. He denies any alcohol or drug use. She is a nonsmoker. MD Complaint: abdominal pain -: week(s) (2) Location: RUQ Severity scale (1-10): 8 Quality: cramping Consistency: intermittent Improves With: bowel movement Worsens With: other (Anxiety) Associated Symptoms: nausea, vomiting, diarrhea, chills - Related Data Home Medications Medication Instructions Recorded Confirmed FLUoxetine HCL [PROzac] 40 mg PO DAILY@1500 07/13/18 03/28/20 Levothyroxine Sodium [Synthroid] 50 mcg PO DAILY@1500 07/13/18 03/28/20 Magnesium(Unknown) 1 tab PO DAILY 03/28/20 03/28/20 Multivitamins, Thera [Multivitamin 1 tab PO DAILY 03/28/20 03/28/20 (formulary)] Vitamin D3(Unknown) 1 tab PO DAILY 03/28/20 03/28/20 guaiFENesin [Mucinex] 600 mg PO BID 03/28/20 03/28/20 Previous Rx's Medication Instructions Recorded Azithromycin [Zithromax Z-pack (6 0 mg PO DIRECTED #1 pack 03/28/20 tabs)] Allergies Allergy/AdvReac Type Severity Reaction Status Date / Time amoxicillin Allergy Anaphylaxis Verified 11/09/20 19:56 metronidazole [From Flagyl] Allergy Rash/Hives Verified 11/09/20 19:56 Sulfa (Sulfonamide Allergy Rash/Hives Verified 11/09/20 19:56 Antibiotics) Review of Systems ROS Statement: Those systems with pertinent positive or pertinent negative responses have been documented in the HPI. ROS Other: All systems not noted in ROS Statement are negative. Past Medical History Past Medical History: Thyroid Disorder History of Any Multi-Drug Resistant Organisms: None Reported Past Surgical History: No Surgical Hx Reported Additional Past Surgical History / Comment(s): HVP, broken nose Past Anesthesia/Blood Transfusion Reactions: No Reported Reaction Past Psychological History: Anxiety, Bipolar, Depression Smoking Status: Never smoker Past Alcohol Use History: None Reported Past Drug Use History: None Reported - Past Family History Family Additional Family Medical History / Comment(s): Father with history of [place] at age of 50 General Exam Limitations: no limitations General appearance: alert, in no apparent distress Head exam: Present: atraumatic, normocephalic, normal inspection Eye exam: Present: normal appearance, PERRL, EOMI. Absent: scleral icterus, conjunctival injection, periorbital swelling ENT exam: Present: normal exam, normal oropharynx, mucous membranes moist Neck exam: Present: normal inspection, full ROM. Absent: tenderness, meningismus, lymphadenopathy, thyromegaly Respiratory exam: Present: normal lung sounds bilaterally. Absent: respiratory distress, wheezes, rales, rhonchi, stridor, chest wall tenderness, accessory muscle use, decreased breath sounds Cardiovascular Exam: Present: regular rate, normal rhythm, normal heart sounds. Absent: systolic murmur, diastolic murmur, rubs, gallop, clicks GI/Abdominal exam: Present: soft, tenderness (Right upper quadrant), normal bowel sounds. Absent: mass, hernia Extremities exam: Present: normal inspection, full ROM, normal capillary refill. Absent: tenderness, pedal edema, joint swelling, calf tenderness Back exam: Present: normal inspection, full ROM. Absent: tenderness, CVA tenderness (R), CVA tenderness (L), muscle spasm, paraspinal tenderness, vertebral tenderness Neurological exam: Present: alert, oriented X3, CN II-XII intact, normal gait Psychiatric exam: Present: anxious Skin exam: Present: warm, dry, intact, normal color. Absent: rash, cyanosis, diaphoretic, erythema, pallor Course Vital Signs 11/09/20 11/09/20 19:54 22:33 Temperature 98.0 F 99.5 F Pulse Rate 73 78 Respiratory 20 18 Rate Blood Pressure 154/84 116/67 O2 Sat by Pulse 96 98 Oximetry - Reevaluation(s) Reevaluation #1: 11/09/20 22:19 Patient's diarrhea stopped after the Bentyl was given. She continues to have some abdominal tenderness, no further cramping. Time: 22:19 Medical Decision Making - Medical Decision Making Patient was given IV fluids and Bentyl which has slowed her diarrhea. She has only had one episode since the medication has been given. She states she does feel better. There is no evidence of leukocytosis. Electrolytes are unremarkable. CT of the abdomen shows a normal appendix and no abnormalities of the liver spleen stomach pancreas or gallbladder. There is no intestinal wall thickening and there is no evidence of bowel obstruction. This is likely due to her anxiety and possibly irritable bowel syndrome. She'll be directed to follow up with GI and/or her primary care doctor. - Lab Data Result diagrams: 11/09/20 21:06 11/09/20 21:06 Lab Results 11/09/20 11/09/20 11/09/20 Range/Units 21:06 21:06 21:06 WBC 6.8 (3.8-10.6) k/uL RBC 4.94 (3.80-5.40) m/uL Hgb 14.8 (11.4-16.0) gm/dL Hct 44.5 (34.0-46.0) % MCV 90.1 (80.0-100.0) fL MCH 29.9 (25.0-35.0) pg MCHC 33.2 (31.0-37.0) g/dL RDW 13.7 (11.5-15.5) % Plt Count 265 (150-450) k/uL MPV 8.1 Neutrophils % 83 % Lymphocytes % 13 % Monocytes % 1 % Eosinophils % 2 % Basophils % 1 % Neutrophils # 5.6 (1.3-7.7) k/uL Lymphocytes # 0.9 L (1.0-4.8) k/uL Monocytes # 0.1 (0-1.0) k/uL Eosinophils # 0.2 (0-0.7) k/uL Basophils # 0.0 (0-0.2) k/uL Sodium 139 (137-145) mmol/L Potassium 4.0 (3.5-5.1) mmol/L Chloride 103 (98-107) mmol/L Carbon Dioxide 27 (22-30) mmol/L Anion Gap 9 mmol/L BUN 11 (7-17) mg/dL Creatinine 0.80 (0.52-1.04) mg/dL Est GFR (CKD-EPI)AfAm >90 (>60 ml/min/1.73 sqM) Est GFR (CKD-EPI)NonAf 85 (>60 ml/min/1.73 sqM) Glucose 104 H (74-99) mg/dL Plasma Lactic Acid Topher (0.7-2.0) mmol/L Calcium 9.6 (8.4-10.2) mg/dL Total Bilirubin 0.4 (0.2-1.3) mg/dL AST 27 (14-36) U/L ALT 22 (4-34) U/L Alkaline Phosphatase 96 (38-126) U/L Troponin I (0.000-0.034) ng/mL Total Protein 7.5 (6.3-8.2) g/dL Albumin 4.4 (3.5-5.0) g/dL Amylase 57 (30-110) U/L Lipase 65 (23-300) U/L TSH 1.490 (0.465-4.680) mIU/L Urine Color Light Yellow Urine Appearance Clear (Clear) Urine pH 5.0 (5.0-8.0) Ur Specific Calvin 1.005 (1.001-1.035) Urine Protein Negative (Negative) Urine Glucose (UA) Negative (Negative) Urine Ketones Negative (Negative) Urine Blood Negative (Negative) Urine Nitrite Negative (Negative) Urine Bilirubin Negative (Negative) Urine Urobilinogen <2.0 (<2.0) mg/dL Ur Leukocyte Esterase Trace H (Negative) Urine RBC <1 (0-5) /hpf Urine WBC 2 (0-5) /hpf Ur Squamous Epith Cells <1 (0-4) /hpf Hyaline Casts 1 (0-2) /lpf 11/09/20 11/09/20 Range/Units 21:06 21:06 WBC (3.8-10.6) k/uL RBC (3.80-5.40) m/uL Hgb (11.4-16.0) gm/dL Hct (34.0-46.0) % MCV (80.0-100.0) fL MCH (25.0-35.0) pg MCHC (31.0-37.0) g/dL RDW (11.5-15.5) % Plt Count (150-450) k/uL MPV Neutrophils % % Lymphocytes % % Monocytes % % Eosinophils % % Basophils % % Neutrophils # (1.3-7.7) k/uL Lymphocytes # (1.0-4.8) k/uL Monocytes # (0-1.0) k/uL Eosinophils # (0-0.7) k/uL Basophils # (0-0.2) k/uL Sodium (137-145) mmol/L Potassium (3.5-5.1) mmol/L Chloride (98-107) mmol/L Carbon Dioxide (22-30) mmol/L Anion Gap mmol/L BUN (7-17) mg/dL Creatinine (0.52-1.04) mg/dL Est GFR (CKD-EPI)AfAm (>60 ml/min/1.73 sqM) Est GFR (CKD-EPI)NonAf (>60 ml/min/1.73 sqM) Glucose (74-99) mg/dL Plasma Lactic Acid Topher 1.1 (0.7-2.0) mmol/L Calcium (8.4-10.2) mg/dL Total Bilirubin (0.2-1.3) mg/dL AST (14-36) U/L ALT (4-34) U/L Alkaline Phosphatase (38-126) U/L Troponin I <0.012 (0.000-0.034) ng/mL Total Protein (6.3-8.2) g/dL Albumin (3.5-5.0) g/dL Amylase (30-110) U/L Lipase (23-300) U/L TSH (0.465-4.680) mIU/L Urine Color Urine Appearance (Clear) Urine pH (5.0-8.0) Ur Specific Calvin (1.001-1.035) Urine Protein (Negative) Urine Glucose (UA) (Negative) Urine Ketones (Negative) Urine Blood (Negative) Urine Nitrite (Negative) Urine Bilirubin (Negative) Urine Urobilinogen (<2.0) mg/dL Ur Leukocyte Esterase (Negative) Urine RBC (0-5) /hpf Urine WBC (0-5) /hpf Ur Squamous Epith Cells (0-4) /hpf Hyaline Casts (0-2) /lpf - EKG Data EKG shows normal: sinus rhythm (Ventricular rate of 77, DC interval 0.148, QRS of 0.84, QTC of 0.434) Disposition Clinical Impression: Diarrhea Disposition: HOME SELF-CARE Condition: Good Additional Instructions: Follow-up with the primary care doctor in 1 week and the supervisor maintenance as needed. Case discussed with the primary care doctor the possibility of irritable bowel syndrome. Return to emergency room with any increased pain, fevers or bloody bowel movements. Is patient prescribed a controlled substance at d/c from ED?: No Referrals: None,Stated [Primary Care Provider] - 1-2 days Solange Mtz MD [STAFF PHYSICIAN] - 1-2 days Leigh Caputo MD [STAFF PHYSICIAN] - 1-2 days Time of Disposition: 00:16
[2020-11-09 21:17] LABS: Basophils % (A) 1 %; Eosinophils # (A) 0.2 k/uL (0-0.7); Eosinophils % (A) 2 %; HCT 44.5 % (34.0-46.0); HGB 14.8 gm/dL (11.4-16.0); Lymphocytes # (A) 0.9 k/uL (1.0-4.8); Lymphocytes % (A) 13 %; MCH 29.9 pg (25.0-35.0); MCHC 33.2 g/dL (31.0-37.0); MCV 90.1 fL (80.0-100.0); Mean Platelet Volume 8.1; Monocytes # (A) 0.1 k/uL (0-1.0); Monocytes % (A) 1 %; Neutrophils # (A) 5.6 k/uL (1.3-7.7); Neutrophils % (A) 83 %; Platelet Count 265 k/uL (150-450); RBC 4.94 m/uL (3.80-5.40); RDW 13.7 % (11.5-15.5); WBC 6.8 k/uL (3.8-10.6)
[2020-11-09 21:27] LABS: ALT 22 U/L (4-34); AST 27 U/L (14-36); African American GFR (CKD) >90 (>60 ml/min/1.73 sqM); Albumin 4.4 g/dL (3.5-5.0); Alkaline Phosphatase 96 U/L (38-126); Amylase 57 U/L (30-110); Anion Gap 9 mmol/L; Blood Urea Nitrogen 11 mg/dL (7-17); Calcium 9.6 mg/dL (8.4-10.2); Carbon Dioxide 27 mmol/L (22-30); Chloride 103 mmol/L (98-107); Glucose 104 mg/dL (74-99); Lipase 65 U/L (23-300); Non-African American GFR(CKD) 85 (>60 ml/min/1.73 sqM); Sodium 139 mmol/L (137-145); Total Bilirubin 0.4 mg/dL (0.2-1.3); Total Protein 7.5 g/dL (6.3-8.2)
[2020-11-09 22:39] VITALS: RESP 18
--- NOTE | 2020-11-09 23:10 | CT ---
EXAMINATION TYPE: CT abdomen pelvis wo con DATE OF EXAM: 11/09/2020 COMPARISON: None HISTORY: epigastric pain CT DLP: 644 mGycm Automated exposure control for dose reduction was used. Images obtained from the diaphragm to the floor the pelvis with no contrast. Lung bases are clear. There is no pleural effusion. Heart size is normal. There is no pericardial eff usion. Liver spleen stomach pancreas gallbladder appear intact. Bile ducts are not dilated. There is calcific density in the gastric fundus that is probably ingested medication. There is no adrenal mass. Kidneys show normal size and contour. There is no hydronephrosis. Ureters a re not dilated. There is no retroperitoneal adenopathy. Appendix appears normal. Bladder distends smoothly. There is no inguinal hernia. Uterus is anteverted . Lumbar vertebra have normal alignment. There is degenerative disc space narrowing from L3 to S1 with spur formation. There is no compression fracture. The bony pelvis is intact. The hip joints are intac t. There is no mesenteric edema. There is no ascites or free air. There is no bowel obstruction. I see n o intestinal wall thickening. IMPRESSION: Normal appendix. No sign of acute abdomen and pelvis.
[2020-11-09 23:57] LABS: Appearance,Urine Clear (Clear); Bilirubin,Urine Negative (Negative); Blood,Urine Negative (Negative); Color,Urine Light Yellow; Glucose,Urine (UA) Negative (Negative); Hyaline Casts,Urine 1 /lpf (0-2); Ketones,Urine Negative (Negative); Leukocyte Esterase,Urine Trace (Negative); Nitrite,Urine Negative (Negative); Protein,Urine Negative (Negative); RBC,Urine <1 /hpf (0-5); Specific Gravity,Urine 1.005 (1.001-1.035); Squamous Epithelial Cell,Urine <1 /hpf (0-4); Urobilinogen,Urine <2.0 mg/dL (<2.0); WBC,Urine 2 /hpf (0-5)
[2020-11-10 00:35] VITALS: BP 120/82; PULSE 90; TEMP 99
== END 2020-11-10 00:31 | disposition home or self-care (01) ==
LOC: EC 19:32
DX: R19.7 Diarrhea, unspecified (principal); E07.9 Disorder of thyroid, unspecified; F41.9 Anxiety disorder, unspecified; F31.9 Bipolar disorder, unspecified; Z88.1 Allergy status to other antibiotic agents; Z88.2 Allergy status to sulfonamides
CPT/HCPCS: 99284; 96360; 96372; 36415; 93005; 80053; 84443; 82150; 83605; 83690; 84484; 85025; 81001; 74176; J0500

== ENCOUNTER 2024-05-15 16:45 | Emergency (ER) | payer OTHER ==
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
[2024-05-15 21:32] VITALS: BP 114/83; PULSE 60; RESP 18; TEMP 97.9
== END 2024-05-15 21:10 | disposition home or self-care (01) ==
LOC: EC 16:45
DX: F32.3 Major depressive disorder, single episode, severe with psychotic features (principal); F43.21 Adjustment disorder with depressed mood; Z88.0 Allergy status to penicillin; Z88.8 Allergy status to other drugs, medicaments and biological substances; Z88.2 Allergy status to sulfonamides
CPT/HCPCS: 82075; 99284

== ENCOUNTER 2024-06-06 16:48 | Inpatient (IN) | payer MEDICAID, OTHER ==
--- NOTE | 2024-06-06 17:10 | ED ---
Psych HPI - General Chief Complaint: Psychiatric Symptoms Stated Complaint: Mental Health Eval. Time Seen by Provider: 06/06/24 16:56 Source: patient, RN notes reviewed, old records reviewed Mode of arrival: ambulatory - History of Present Illness Initial Comments: This is a 58-year-old female to the ER for evaluation of psychiatric illness/low mental health here on petition for psychiatric evaluation and treatment MD Complaint: feels depressed, altered mental status -: unknown Associated Psychiatric Symptoms: racing thoughts, auditory hallucinations, delusions Quality: intermittent Improves With: none Worsens With: none Context: significant life stressor Associated Symptoms: denies other symptoms Treatments Prior to Arrival: placed on mental health hold - Related Data Previous Rx's Medication Instructions Recorded Levothyroxine Sodium [Synthroid] 50 mcg PO DAILY 30 Days #30 tab 06/09/24 QUEtiapine [SEROquel] 50 mg PO HS 30 Days #30 tab 06/09/24 Allergies Allergy/AdvReac Type Severity Reaction Status Date / Time amoxicillin Allergy Anaphylaxis Verified 06/06/24 17:21 bupropion [From Wellbutrin] Allergy Itching Verified 06/06/24 17:21 metronidazole [From Flagyl] Allergy Rash/Hives Verified 06/06/24 17:21 Sulfa (Sulfonamide Allergy Rash/Hives Verified 06/06/24 17:21 Antibiotics) Review of Systems ROS Statement: Those systems with pertinent positive or pertinent negative responses have been documented in the HPI. ROS Other: All systems not noted in ROS Statement are negative. Past Medical History Past Medical History: Thyroid Disorder History of Any Multi-Drug Resistant Organisms: None Reported Past Surgical History: No Surgical Hx Reported Additional Past Surgical History / Comment(s): HVP, broken nose Past Anesthesia/Blood Transfusion Reactions: No Reported Reaction Past Psychological History: Anxiety, Bipolar, Depression Smoking Status: Never smoker Past Alcohol Use History: None Reported Past Drug Use History: None Reported - Past Family History Family Additional Family Medical History / Comment(s): Father with history of OK at age of 50 General Exam Limitations: no limitations General appearance: alert, in no apparent distress Head exam: Present: atraumatic, normocephalic, normal inspection Eye exam: Present: normal appearance, PERRL, EOMI. Absent: scleral icterus, conjunctival injection, periorbital swelling ENT exam: Present: normal exam, mucous membranes moist Neck exam: Present: normal inspection. Absent: tenderness, meningismus, lymphadenopathy Respiratory exam: Present: normal lung sounds bilaterally. Absent: respiratory distress, wheezes, rales, rhonchi, stridor Cardiovascular Exam: Present: regular rate, normal rhythm, normal heart sounds. Absent: systolic murmur, diastolic murmur, rubs, gallop, clicks GI/Abdominal exam: Present: soft, normal bowel sounds. Absent: distended, tenderness, guarding, rebound, rigid Extremities exam: Present: normal inspection, full ROM, normal capillary refill. Absent: tenderness, pedal edema, joint swelling, calf tenderness Back exam: Present: normal inspection Neurological exam: Present: alert, oriented X3, CN II-XII intact Psychiatric exam: Present: normal affect, normal mood Skin exam: Present: warm, dry, intact, normal color. Absent: rash Course Vital Signs 06/06/24 06/06/24 16:53 23:21 Temperature 97.9 F 98.4 F Pulse Rate 67 68 Respiratory 20 16 Rate Blood Pressure 153/93 109/55 O2 Sat by Pulse 93 L 99 Oximetry - Reevaluation(s) Reevaluation #1: 06/06/24 17:42 Medical records reviewed Reevaluation #2: 06/06/24 17:42 Medically cleared for psychiatric evaluation Reevaluation #3: Differential Mental Health Depression, anxiety, bipolar, psychosis, schizophrenia, borderline personality, situational depression, adjustment disorder, behavioral disorder, brain tumor, malingering, substance abuse, encephalopathy, medication reaction, dementia, hyp othyroidism, degenerative neurologic disorder, lupus.... This is not meant to be all-inclusive list Reevaluation #4: Was pt. sent in by a medical professional or institution (, PA, MACHINE SWEEPER BRUSH MAKER, urgent care, hospital, or half-way...) When possible be specific @ -no Did you speak to anyone other than the patient for history (EMS, parent, family, police, friend...)? What history was obtained from this source @ -no Did you review nursing and triage notes (agree or disagree)? Why? @ -agree Are old charts reviewed (outside hosp., previous admission, EMS record, old EKG, old radiological studies, urgent care reports/EKG's, half-way records)? Report findings @ -yes Differential Diagnosis (chest pain, altered mental status, abdominal pain women, abdominal pain men, vaginal bleeding, weakness, fever, dyspnea, syncope, headache, dizziness, GI bleed, back pain, seizure, CVA, palpatations, mental health, musculoskeletal)? @ -prior EKG interpreted by me (3pts min.). @ -no X-rays interpreted by me (1pt min.). @ -no CT interpreted by me (1pt min.). @ -no U/S interpreted by me (1pt. min.). @ -no What testing was considered but not performed or refused? (CT, X-rays, U/S, labs)? Why? @ -none What meds were considered but not given or refused? Why? @ -none Did you discuss the management of the patient with other professionals (professionals i.e. , PA, MACHINE SWEEPER BRUSH MAKER, lab, RT, psych nurse, social work professor, manager of applications development, teacher, delinquency prevention officer, mental health case manager)? Give summary @ -no Was smoking cessation discussed for >3mins.? @ -no Was critical care preformed (if so, how long)? @ -no Were there social determinants of health that impacted care today? How? (Homelessness, low income, unemployed, alcoholism, drug addiction, transportation, low edu. Level, literacy, decrease access to med. care, [facility], rehab)? @ -none Was there de-escalation of care discussed even if they declined (Discuss DNR or withdrawal of care, Hospice)? DNR status @ -no What co-morbidities impacted this encounter? (DM, HTN, Smoking, COPD, CAD, Cancer, CVA, ARF, Chemo, Hep., AIDS, mental health diagnosis, sleep apnea, morbid obesity)? @ -none Was patient admitted / discharged? Hospital course, mention meds given and route, prescriptions, significant lab abnormalities, going to OR and other pertinent info. @ - 58 female needs to be admitted for psychiatric evaluation and treatment Transferred to inpatient psychiatric evaluation and treatment Undiagnosed new problem with uncertain prognosis? @ -no Drug Therapy requiring intensive monitoring for toxicity (Heparin, Nitro, Insulin, Cardizem)? @ -no Were any procedures done? @ -no Diagnosis/symptom? @ -Acute psychosis Acute, or Chronic, or Acute on Chronic? @ -Acute Uncomplicated (without systemic symptoms) or Complicated (systemic symptoms)? @ -Complicated Side effects of treatment? @ -no Exacerbation, Progression, or Severe Exacerbation? @ -exacerbation Poses a threat to life or bodily function? How? (Chest pain, USA, [place], pneumonia, PE, COPD, DKA, ARF, appy, cholecystitis, CVA, Diverticulitis, Homicidal, Suicidal, threat to staff... and all critical care pts) @ -no Medical Decision Making - Medical Decision Making 58 female needs to be admitted for psychiatric evaluation and treatment - Lab Data Result diagrams: 06/07/24 07:42 06/07/24 07:42 Lab Results 06/06/24 06/06/24 06/06/24 Range/Units 20:29 20:29 20:29 Urine Color Colorless Urine Appearance Clear (Clear) Urine pH 5.5 (5.0-8.0) Ur Specific [place] 1.008 (1.001-1.035) Urine Protein Negative (Negative) Urine Glucose (UA) Negative (Negative) Urine Ketones Negative (Negative) Urine Blood Negative (Negative) Urine Nitrite Negative (Negative) Urine Bilirubin Negative (Negative) Urine Urobilinogen <2.0 (<2.0) mg/dL Ur Leukocyte Esterase Small H (Negative) Urine RBC <1 (0-5) /hpf Urine WBC 1 (0-5) /hpf Ur Squamous Epith Cells <1 (0-4) /hpf Urine Opiates Screen Not Detected (NotDetected) Ur Oxycodone Screen Not Detected (NotDetected) Urine Methadone Screen Not Detected (NotDetected) Ur Barbiturates Screen Not Detected (NotDetected) U Tricyclic Antidepress Not Detected (NotDetected) Ur Phencyclidine Scrn Not Detected (NotDetected) Ur Amphetamines Screen Not Detected (NotDetected) U Methamphetamines Scrn Not Detected (NotDetected) U Benzodiazepines Scrn Not Detected (NotDetected) Urine Cocaine Screen Not Detected (NotDetected) U Marijuana (THC) Screen Not Detected (NotDetected) Influenza Type A (PCR) Not Detected (Not Detectd) Influenza Type B (PCR) Not Detected (Not Detectd) RSV (PCR) Not Detected (Not Detectd) SARS-CoV-2 (PCR) Not Detected (Not Detectd) Disposition Clinical Impression: Psychosis, Depression, Major depressive disorder without psychotic features, Adjustment reaction of adult life Disposition: TRANSFER TO PSYCH HOSP/UNIT Condition: Stable Is patient prescribed a controlled substance at d/c from ED?: No
[2024-06-06 20:48] LABS: Amphetamine Screen,Urine Not Detected (NotDetected); Barbiturate Screen,Urine Not Detected (NotDetected); Benzodiazepines Screen,Urine Not Detected (NotDetected); Cocaine Screen,Urine Not Detected (NotDetected); Methadone Screen, Urine Not Detected (NotDetected); Opiate Screen,Urine Not Detected (NotDetected); Oxycodone Screen, Urine Not Detected (NotDetected); Phencyclidine Screen,Urine Not Detected (NotDetected); Tricyclic Antidepressant,Urine Not Detected (NotDetected); Urn Cannabinoid Scrn Not Detected (NotDetected)
[2024-06-06 21:11] LABS: Influenza A Not Detected (Not Detectd); Influenza B Not Detected (Not Detectd); RSV Not Detected (Not Detectd)
[2024-06-06] MEDS ORDERED: MAG HYDROX/AL HYDROX/SIMETH 355 ML BOTTLE PO PRN (23:18)
[2024-06-06] MEDS ORDERED: ACETAMINOPHEN TAB 325 MG TAB PO PRN (23:18)
[2024-06-06] MEDS ORDERED: MAGNESIUM HYDROXIDE 2,400 MG/30 ML CUP PO PRN (23:18)
[2024-06-06] MEDS ORDERED: haloperidoL 5 MG TAB PO PRN (23:18)
[2024-06-06] MEDS ORDERED: LORazepam 1 MG TAB PO PRN (23:18)
[2024-06-06] MEDS ORDERED: HALOPERIDOL LACTATE 5 MG/ML 1 ML VIAL IM PRN (23:18)
[2024-06-06] MEDS ORDERED: LORazepam 2 MG/ML INJ IM PRN (23:18)
[2024-06-07] MEDS: LEVOTHYROXINE 50 MCG TAB PO SCH (06:44)
[2024-06-07 07:57] LABS: Appearance,Urine Clear (Clear); Bilirubin,Urine Negative (Negative); Blood,Urine Negative (Negative); Color,Urine Colorless; Glucose,Urine (UA) Negative (Negative); Ketones,Urine Negative (Negative); Leukocyte Esterase,Urine Small (Negative); Nitrite,Urine Negative (Negative); PH, Urine 5.5 (5.0-8.0); Protein,Urine Negative (Negative); RBC,Urine <1 /hpf (0-5); Specific Gravity,Urine 1.008 (1.001-1.035); Squamous Epithelial Cell,Urine <1 /hpf (0-4); Urobilinogen,Urine <2.0 mg/dL (<2.0); WBC,Urine 1 /hpf (0-5)
[2024-06-07 08:17] LABS: Basophils # (A) 0.06 10*3/uL (0.00-0.10); Eosinophils # (A) 0.16 10*3/uL (0.04-0.35); Eosinophils % (A) 2.6 %; HCT 47.5 % (37.2-46.3); HGB 15.6 g/dL (12.0-15.0); Lymphocytes % (A) 25.8 %; MCH 29.7 pg (27.0-32.0); MCHC 32.8 g/dL (32.0-37.0); MCV 90.3 fL (80.0-97.0); Mean Platelet Volume 11.2 fL (9.5-12.2); Monocytes # (A) 0.56 10*3/uL (0.20-1.00); Neutrophils % (A) 61.3 %; Platelet Count 261 10*3/uL (140-440); RBC 5.26 10*6/uL (4.10-5.20); RDW 12.9 % (11.5-14.5)
[2024-06-07] MEDS: IBUPROFEN 600 MG TAB PO PRN (08:23)
[2024-06-07 08:35] LABS: ALT 22 U/L (4-34); AST 29 U/L (14-36); African American GFR (CKD) >90 (>60 ml/min/1.73 sqM); Albumin 4.5 g/dL (3.5-5.0); Alkaline Phosphatase 80 U/L (38-126); Anion Gap 4 mmol/L; Blood Urea Nitrogen 17 mg/dL (7-17); Calcium 9.9 mg/dL (8.4-10.2); Carbon Dioxide 33 mmol/L (22-30); Chloride 101 mmol/L (98-107); Glucose 84 mg/dL (74-99); Non-African American GFR(CKD) >90 (>60 ml/min/1.73 sqM); Potassium 4.2 mmol/L (3.5-5.1); Sodium 138 mmol/L (137-145); Total Bilirubin 0.9 mg/dL (0.2-1.3); Total Protein 7.3 g/dL (6.3-8.2)
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
[2024-06-07 15:33] LABS: Chol/HDL Ratio 2.74 Ratio; LDL Cholesterol,Calculated 99.4 mg/dL (0.0-131.0); VLDL Calculation 10.48 mg/dL (5.00-40.00)
[2024-06-07] MEDS: QUEtiapine 50 MG TAB PO SCH (22:13)
--- NOTE | 2024-06-08 02:24 | HP ---
HISTORY AND PHYSICAL CHIEF COMPLAINT: Acute psychosis. HISTORY OF PRESENT ILLNESS: This lady is admitted after she presented to the emergency room with acute psychosis. There is no other history available. Past medical history, family history, and personal and social histories reveals she is allergic to sulfa and penicillin. She has been on levothyroxine. She does not smoke. PHYSICAL EXAMINATION: VITAL SIGNS: Normal. HEAD, EARS, EYES, NOSE, MOUTH AND THROAT: Normal. CHEST: Clear. CARDIAC: Normal. ABDOMEN: Soft and nontender. EXTREMITIES: Normal. NEUROLOGICAL: Intact. DIAGNOSES: She is admitted with diagnoses of, 1. Acute psychosis. 2. History of hypothyroidism. RECOMMENDATIONS: None. Thank you respectfully. TEVIN / HARISH: [phone] /
--- NOTE | 2024-06-08 13:35 | P.PN ---
Progress Note - Text Progress Note Date: 06/08/24 Interval History: Patient was seen wandering the hallways and was directable and agreeable to azam rogel with journalists and other writers in the office. Patient reports sleeping well last night with Seroquel. She has been working diligently on finding assistance for her home and employment. She states being denied by [facility] for further emergency findings however she realized that her rent has decreased since she obtained a guardian and she feels as though this might help her case. She mentions applying all over however has still been unable to find a new job. She mentioned a family friend she might be able to ask for help as her landlord gave her until June 12 to pay or else she will be evicted. Despite the adversities, patient was goal oriented. She has been intermittently attending groups. Less anxious and disorganized than the previous encounter. At this time patient denies any suicidal or homicidal ideations, intent or plan. Patient denies any auditory, visual hallucinations and denies any paranoia or delusions. Patient denies any side effects from the medications and has been compliant with meds. Mental Status Exam: General Appearance: Patient appears to be stated age is alert, directable, and cooperative. She has questionable grooming and hygiene Behavior: Patient is calmly seated without any agitated behavior. Speech: Patient's speech is fluent and nonpressured. Mood/Affect: Mood is improving mildly, affect is congruent and constricted. Suicidality/Homicidality: Patient denies having any suicidal or homicidal ideation intent or plan. Perceptions: Patient denies any visual hallucinations and denies any auditory hallucinations Though content/process: There is no evidence of any delusional thought content and thought process is linear and goal-directed. Disorganization is better Memory and concentration: AOX3, grossly intact for the purposes of this session Judgment and insight: Improving mildly Assessment Adjustment disorder with depressed anxious mood History of major depressive disorder Plan: -Patient continues to meet criteria for inpatient psychiatric admission for symptom stabilization and safety. Patient has signed adult voluntary form and medication consent and was placed in patient's chart. -Medications: Continue Seroquel 50 mg at bedtime for sleep/mood -When necessary Ativan and Haldol for agitation/aggression. -Labs: Grossly WNL -SW on board for discharge planning. Encouraged the patient to participate in milieu. Anticipate discharge back home tomorrow.
[2024-06-08 21:57] VITALS: BP 106/65; PULSE 74; RESP 18; TEMP 97.8
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
--- NOTE | 2024-06-09 23:06 | CONS ---
CONSULTATION CHIEF COMPLAINT: Acute psychosis. HISTORY OF PRESENT ILLNESS: This patient came to the emergency room psychotic and depressed and was admitted to the psych unit. REVIEW OF SYSTEMS: She apparently has not had any headaches, chest pain, nausea, vomiting, etc. She is on thyroid medication. Past medical history, family history, and personal and social histories are otherwise unremarkable. She is allergic to penicillin and sulfa. Surgically, she has had a cervical conization for an abnormal Pap smear. Rest of the history is unremarkable. She does not smoke. PHYSICAL EXAMINATION: VITAL SIGNS: Normal. HEAD, EARS, EYES, NOSE, MOUTH AND THROAT: Normal. CHEST: Clear. CARDIAC: Normal. ABDOMEN: Soft and nontender. EXTREMITIES: Normal. NEUROLOGICAL: She seems to be intact. IMPRESSION: 1. Acute psychosis. 2. Depression. RECOMMENDATIONS: None. Thank you respectfully, TEVIN / HARISH: [phone] /
== END 2024-06-09 13:50 | disposition home or self-care (01) | DRG 755 ==
LOC: EC 16:48 → EEVIPCON 16:48 → 3MHU 23:02
PROVIDERS: ADMIT Psychiatry & Neurology Psychiatry; ATTEND Psychiatry & Neurology Psychiatry
DX: F43.23 Adjustment disorder with mixed anxiety and depressed mood (principal); E07.9 Disorder of thyroid, unspecified; F23 Brief psychotic disorder; Z79.890 Hormone replacement therapy; Z79.899 Other long term (current) drug therapy; Z28.310 Unvaccinated for COVID-19; Z28.21 Immunization not carried out because of patient refusal; Z71.89 Other specified counseling; Z91.83 Wandering in diseases classified elsewhere
CPT/HCPCS: 80053; 80061; 80306; 81001; 82075; 83036; 84443; 85025; 87636; 99285